=== PATIENT | female | born 1980 | race Caucasian/White ===

== ENCOUNTER 2016-12-21 11:30 | Emergency (ER) | payer MEDICAID ==
--- NOTE | 2016-12-21 12:36 | EDPHY ---
H & P Time Seen by Provider: 12/21/16 12:32 HPI/ROS: CHIEF COMPLAINT: Foreign object in foot HISTORY OF PRESENT ILLNESS: The patient is a 35-year-old female presenting with a foreign object in her right heel. The patient believes she stepped on fragments of a broken frame last night. She states she is able to feel a bump and sees a dark fragment in her heel. The patient has pain with weight bearing on the heel. ROS: No numbness, weakness, excessive bleeding, syncopal episode, other injury. Past Medical/Surgical History: Denies. Social History: Single. Lives in [place]. Smoking Status: Never smoked Physical Exam: Alert and oriented x3, no acute distress Extremities: Skin: Neuro: Motor and sensory intact Vascular: Capillary refill brisk distally Constitutional: Initial Vital Signs Temperature (C) 36.8 C 12/21/16 11:34 Heart Rate 100 12/21/16 11:34 Respiratory Rate 20 12/21/16 11:34 Blood Pressure 136/79 H 12/21/16 11:34 O2 Sat (%) 97 12/21/16 11:34 O2 Delivery Mode Room Air Allergies/Adverse Reactions: acetaminophen [From Vicodin] Adverse Reaction (Mild, Verified 10/21/10 11:29) hydrocodone bitartrate [From Vicodin] Adverse Reaction (Mild, Verified 10/21/10 11:29) Home Medications: Medication Instructions Recorded Lisinopril 12/21/16 Medical Decision Making - Diagnostics Imaging Results: Imaging Impressions Foot X-Ray 12/21/16 11:52 Impression: No radio opaque glass identified. Imaging: Discussed imaging studies w/ faculty i on call medical assistant Radiologist ED Course/Re-evaluation: The patient presents with a foreign body in her right heel from accidently stepping on a broken frame yesterday. Foot x-ray is negative for radio opaque glass. Foreign body removed using splinter forceps. Patient declined local anesthesia. Departure - Departure Disposition: Home, Routine, Self-Care Clinical Impression: Foreign body in foot Qualifiers: Encounter type: initial encounter Laterality: right Qualified Code(s): S90.851A - Superficial foreign body, right foot, initial encounter Condition: Good Instructions: Soft Tissue Foreign Body (ED), Acute Wounds (ED) Additional Instructions: Followup with your primary care physician if you continue to have pain. Referrals: VAZQUEZ MARLEY [Other] - As per Instructions Report Scribed for: Alisha Carl Report Scribed by: Zulema Alcocer Date of Report: 12/21/16 Time of Report: 12:42 Physician Review and Approval Statement: 12/21/16 12:43 Portions of this note were transcribed by a biomedical equipment specialist. I personally performed the history, physical exam, and medical decision-making; and confirmed the accuracy of the information in the transcribed note.
[2016-12-21 13:36] VITALS: BP 127/76; PULSE 81; RESP 17; TEMP 98.8; O2SAT 96
== END 2016-12-21 13:35 | disposition home or self-care (01) ==
DX: S90.851A Superficial foreign body, right foot, initial encounter (principal); W45.8XXA Other foreign body or object entering through skin, initial encounter

== ENCOUNTER 2017-08-11 13:06 | Emergency (ER) | payer MEDICAID ==
[2017-08-11 13:15] VITALS: BP 127/87; RESP 16; O2SAT 98
--- NOTE | 2017-08-11 15:00 | CPEKG ---
Heart Rate: 105 RR Interval: 571 P-R Interval: 192 QRSD Interval: 72 QT Interval: 328 QTC Interval: 434 P [place]: 47 QRS [place]: 59 T Wave [place]: 2 EKG Severity - BORDERLINE ECG - EKG Impression: SINUS TACHYCARDIA EKG Impression: PROBABLE LEFT ATRIAL ABNORMALITY Electronically Signed By: Thea Ornelas 11-Aug-2017 20:37:27
--- NOTE | 2017-08-11 16:35 | EDPHY ---
H & P Smoking Status: Never smoked Time Seen by Provider: 08/11/17 14:16 HPI/ROS: CHIEF COMPLAINT: Sore throat, cough, chest pain HISTORY OF PRESENT ILLNESS: 36-year-old female presents to the emergency department with cough, sore throat and chest pain. Patient states that she developed URI symptoms 2 days ago. She is waking up with pain in her chest. She also states that 2 weeks ago she saw her dog "get eaten by a coyote". She states that she does feel some grief associated with this. Unknown fevers or chills. She feels achy all over. No urinary symptoms. No abdominal pain. No known ill contacts. No recent travel. REVIEW OF SYSTEMS: Constitutional: No fever, no chills. Eyes: No double or blurry vision. ENT: sore throat. Respiratory: cough, no shortness of breath. Cardiac: No chest pain. Gastrointestinal: No abdominal pain, vomiting or diarrhea. Genitourinary: No dysuria. Musculoskeletal: No neck or back pain. Skin: No rashes. Neurological: No headache. (Delma Jurado) Past Medical/Surgical History: Orthopedic surgeries (Delma Jurado) Social History: Single and lives in [place] (Delma Jurado) Physical Exam: General Appearance: Alert, no distress. Temperature 37.6. She is 98% on room air. Eyes: Pupils equal and round. Extraocular motions are all intact. ENT: Mouth: Mucous membranes moist. Respiratory: No wheezing, rhonchi, or rales, lungs are clear to auscultation. Cardiovascular: Regular rate and rhythm. Gastrointestinal: Abdomen is soft and nontender, no masses, no rebound or guarding, bowel sounds normal. Neurological: Alert and oriented x 3, cranial nerves II through XII grossly intact Skin: Warm and dry, no rashes. Musculoskeletal: Nontender to palpate along the cervical, thoracic or lumbar spine. Neck is supple. Extremities: Full range of motion and no peripheral edema. Psychiatric: Patient is oriented X 3, there is no agitation. (Delma Jurado) Constitutional: Initial Vital Signs Temperature (C) 37.6 C 08/11/17 13:10 Heart Rate 116 H 08/11/17 13:10 Respiratory Rate 16 08/11/17 13:10 Blood Pressure 127/87 H 08/11/17 13:10 O2 Sat (%) 98 08/11/17 13:10 O2 Delivery Mode Room Air Allergies/Adverse Reactions: acetaminophen [From Vicodin] Adverse Reaction (Mild, Verified 08/11/17 13:16) hydrocodone bitartrate [From Vicodin] Adverse Reaction (Mild, Verified 08/11/17 13:16) Home Medications: Medication Instructions Recorded Lisinopril 12/21/16 LORazepam [Ativan] 1 mg PO Q6-8PRN PRN #10 tab 08/11/17 Medical Decision Making - Diagnostics EKG Interpretation: 12 lead EKG is interpreted in Trace master View by emergency department physician. (Thea Ornelas) ED Course/Re-evaluation: Urinalysis reveals no signs of infection. Rapid strep screen was negative. Rapid influenza was negative. Clinically I still feel that this patient likely has influenza or other viral upper respiratory infection. She was complaining of some chest pain with productive cough. Chest x-ray reveals no evidence of pneumonia. Patient was treated symptomatically with ibuprofen and Tylenol. I do not think antibiotics are indicated. She was given primary care referral. (Delma Jurado) The patient was evaluated and managed by the physician medical laboratory assistant. I have reviewed this chart and I agree with the findings and plan of care as documented , as indicated by my signature. I am the secondary supervising physician. ( Thea Ornelas) Differential Diagnosis: Including but not limited to viral upper respiratory infection, influenza, strep pharyngitis, pneumonia, bronchitis, anxiety (Delma Jurado) - Data Points Medications Given: Discontinued Medications Acetaminophen (Tylenol) 1,000 mg PO EDNOW ONE Stop: 08/11/17 16:57 Last Admin: 08/11/17 17:06 Dose: 1,000 mg Ibuprofen (Motrin) 600 mg PO EDNOW ONE Stop: 08/11/17 16:57 Last Admin: 08/11/17 17:06 Dose: 600 mg Departure - Departure Disposition: Home, Routine, Self-Care Clinical Impression: Upper respiratory infection Condition: Good Instructions: Upper Respiratory Infection (ED) Additional Instructions: Diet and activity as tolerated. Adult Pain & Fever Control: We recommend Acetaminophen (Tylenol) and Ibuprofen (Motrin,Advil) for pain and fever control. When fever is high or pain severe, both drugs can be used at the same time, but at different intervals. Please note the time differences. Your dose is: Acetaminophen 1000mg every 4 to 6 hours Ibuprofen 600mg every 8 hours with food Note: do not take Acetaminophen with Hydrocodone (Vicodin, Lortab) or Oycodone (Percocet). These medications also contain Acetaminophen. No more than 3000mg of Acetaminophen should be taken in 24 hours (for an adult). Referrals: Almita Gandhi MD [Primary Care Provider] - 1-2 days without fail Prescriptions: LORazepam [Ativan] 1 mg PO Q6-8PRN PRN #10 tab PRN Reason: Anxiety
[2017-08-11] MEDS ORDERED: ACETAMINOPHEN 500 MG TAB PO ONE (16:56)
[2017-08-11] MEDS ORDERED: IBUPROFEN 600 MG TAB PO ONE (16:56)
[2017-08-11 17:42] VITALS: PULSE 72; TEMP 98.4
== END 2017-08-11 17:45 | disposition home or self-care (01) ==
DX: J06.9 Acute upper respiratory infection, unspecified (principal)